=== PATIENT | male | born 1945 ===

== ENCOUNTER 2020-08-14 06:00 | Day surgery (SDC) | payer OTHER | END 2020-08-14 10:45 | disposition home or self-care (01) | LOC: AMB-ENDOS 06:00 | PROVIDERS: ATTEND Surgery | DX: D12.5 Benign neoplasm of sigmoid colon (principal); D12.8 Benign neoplasm of rectum ==

== ENCOUNTER 2021-09-10 06:45 | Day surgery (SDC) | payer OTHER | END 2021-09-10 10:35 | disposition home or self-care (01) | LOC: AMB-ENDOS 06:45 | PROVIDERS: ATTEND Surgery | DX: K62.89 Other specified diseases of anus and rectum (principal); Z20.822 Contact with and (suspected) exposure to COVID-19 ==